=== PATIENT | female | born 1985 | race Two or more races ===

== ENCOUNTER 2022-01-12 16:01 | Outpatient (CLI) | payer OTHER | END 2022-01-13 07:45 | disposition home or self-care (01) | LOC: NST 16:01 | PROVIDERS: ATTEND Obstetrics & Gynecology Maternal & Fetal Medicine | DX: Z34.83 Encounter for supervision of other normal pregnancy, third trimester (principal) ==

== ENCOUNTER 2022-02-25 09:51 | Outpatient (CLI) | payer OTHER | END 2022-02-25 13:21 | disposition home or self-care (01) | LOC: NST 09:51 | PROVIDERS: ATTEND Obstetrics & Gynecology Maternal & Fetal Medicine | DX: Z34.83 Encounter for supervision of other normal pregnancy, third trimester (principal) ==